=== PATIENT | male | born 1975 | race Two or more races ===

== ENCOUNTER → 2018-10-08 | Emergency (ER) | payer OTHER ==
[~2018-10-08] VITALS: Ht 198.1 cm; Wt 131.5 kg
[~2018-10-08] MED LIST: FORTAMET500 MG PO
== END | disposition left against medical advice (07) ==
LOC: ER 08:33
DX: N50.812 Left testicular pain (principal); N50.811 Right testicular pain; N39.0 Urinary tract infection, site not specified